=== PATIENT | female | born 1970 | race Caucasian/White ===

== ENCOUNTER 2019-01-04 01:28 | Emergency (ER) | payer SELFPAY ==
[~2019-01-04] VITALS: Ht 167.6 cm; Wt 105.0 kg
[2019-01-04] MEDS ORDERED: METOCLOPRAMIDE HCL 5 MG/ML 2 ML VIAL IVP ONE (01:45)
[2019-01-04 02:00] LABS: BASOPHILS % (AUTO) 0.7 % (0.0-2.0); EOSINOPHILS % (AUTO) 0.8 % (1.0-6.0); HEMATOCRIT 34.7 % (36-46); HEMOGLOBIN 11.5 g/dL (12.0-16.0); LYMPHOCYTES # (AUTO) 1.5 K/uL (1.0-4.8); LYMPHOCYTES % (AUTO) 17.8 % (22.0-44.0); MEAN CORPUSCULAR HEMOGLOBIN 27.1 pg (26.0-34.0); MEAN CORPUSCULAR HGB CONC 33.1 G/dL (31.0-37.0); MEAN CORPUSCULAR VOLUME 82 fL (80-100); MONOCYTES # (AUTO) 0.7 K/uL (0.1-1.0); MONOCYTES % (AUTO) 7.6 % (2.0-9.0); NEUTROPHILS # (AUTO) 6.2 K/uL (1.8-7.7); NEUTROPHILS % (AUTO) 73.1 % (40.0-70.0); PLATELET COUNT (AUTO) 274 K/uL (150-450); RED BLOOD CELL COUNT(AUTO) 4.25 MIL/uL (4.00-5.20); RED CELL DISTRIBUTION WIDTH 14.7 % (11.5-14.5)
[2019-01-04] MEDS ORDERED: SULI200T4 PO (02:08)
[2019-01-04] MEDS ORDERED: CALC25 PO (02:08)
[2019-01-04] MEDS ORDERED: KETO30I IM (02:08)
[2019-01-04] MEDS ORDERED: PARACETAMOL PO (02:08)
[2019-01-04] MEDS ORDERED: LOSA50TA64 PO (02:08)
[2019-01-04] MEDS ORDERED: AMLO-511 PO (02:08)
[2019-01-04] MEDS ORDERED: CLORTALIDONA PO (02:08)
[2019-01-04] MEDS ORDERED: VITA1TAB22 PO (02:08)
[2019-01-04 02:12] LABS: CALCIUM, TOTAL 8.9 mg/dL (8.8-10.5); CREATININE 1.03 mg/dL (0.60-1.30); POTASSIUM 3.4 mmol/L (3.5-5.1)
[2019-01-04 02:13] LABS: PROTHROMBIN TIME 10.1 SEC (9.4-11.6)
[2019-01-04 02:17] LABS: BILIRUBIN,TOTAL 0.3 mg/dL (0.1-1.0); TOTAL PROTEIN, SERUM 6.4 g/dL (6.4-8.2)
[2019-01-04 02:29] LABS: APPEARANCE,URINE CLOUDY (CLEAR); BILIRUBIN,URINE NEGATIVE (NEGATIVE); GLUCOSE, URINE (UA) NEGATIVE (NEGATIVE); KETONES,URINE TRACE mg/dL (NEGATIVE); LEUKOCYTE ESTERASE ,URINE MODERATE (NEGATIVE); NITRATE,URINE NEGATIVE (NEGATIVE); OCCULT BLOOD,URINE NEGATIVE (NEGATIVE); PH,URINE 7.5 (5.0-8.0); PROTEIN,URINE NEGATIVE (NEGATIVE)
[2019-01-04 02:39] LABS: BACTERIA,URINE Few /HPF (None Seen); RBC,URINE 0-2 /HPF (0-2); SQUAMOUS EPITHELIAL CELL,UR Many /LPF (None Seen); WBC,URINE 26-50 /HPF (0-5)
[2019-01-04 06:50] VITALS: BP 139/73
== END 2019-01-04 07:28 | disposition home or self-care (01) ==
LOC: EMS 01:30
DX: R51 Headache (principal); R07.9 Chest pain, unspecified; R11.2 Nausea with vomiting, unspecified; I10 Essential (primary) hypertension
CPT/HCPCS: 36415; 70450; 71045; 80053; 81001; 83690; 84484; 85025; 85610; 85730; 87086; 93005; 96374; 99285; J2765

== ENCOUNTER 2022-04-29 11:38 | Inpatient (IN) | payer MEDICAID ==
[~2022-04-29] VITALS: Ht 165.1 cm; Wt 108.2 kg
[~2022-04-29 11:38] MED LIST: AMLO-257 PO; CALC0.2521 PO; CLORTALIDONA PO; KETO30I IM; LOSA-382 PO; PARACETAMOL PO; SULI200T4 PO; VITA1TAB22 PO
[2022-04-29] MEDS ORDERED: ONDANSETRON HCL 4 MG/2 ML VIAL IVP ONE ×2 (12:15→15:15)
[2022-04-29] MEDS ORDERED: FentaNYL CITRATE PF 100 MCG/2 ML VIAL IVP ONE ×2 (12:15→13:30)
[2022-04-29 12:33] LABS: BASOPHILS % (AUTO) 0.3 % (0.0-2.0); EOSINOPHILS % (AUTO) 0.1 % (1.0-6.0); HEMATOCRIT 39.4 % (36-46); HEMOGLOBIN 12.8 g/dL (12.0-16.0); LYMPHOCYTES # (AUTO) 0.8 K/uL (1.0-4.8); LYMPHOCYTES % (AUTO) 4.8 % (22.0-44.0); MEAN CORPUSCULAR HEMOGLOBIN 26.6 pg (26.0-34.0); MEAN CORPUSCULAR HGB CONC 32.5 G/dL (31.0-37.0); MEAN CORPUSCULAR VOLUME 82 fL (80-100); MONOCYTES # (AUTO) 0.7 K/uL (0.1-1.0); MONOCYTES % (AUTO) 4.3 % (2.0-9.0); NEUTROPHILS # (AUTO) 14.5 K/uL (1.8-7.7); PLATELET COUNT (AUTO) 262 K/uL (150-450); RED BLOOD CELL COUNT(AUTO) 4.82 MIL/uL (4.00-5.20); RED CELL DISTRIBUTION WIDTH 15.5 % (11.5-14.5)
[2022-04-29 12:34] LABS: NEUTROPHILS % (AUTO) 90.5 % (40.0-70.0)
[2022-04-29 12:42] LABS: CALCIUM, TOTAL 8.7 mg/dL (8.8-10.5); CREATININE 1.22 mg/dL (0.60-1.30); POTASSIUM 3.9 mmol/L (3.5-5.1)
[2022-04-29 12:48] LABS: ALBUMIN 3.7 g/dL (3.4-5.0); BILIRUBIN,TOTAL 0.4 mg/dL (0.1-1.0); TOTAL PROTEIN, SERUM 7.7 g/dL (6.4-8.2)
[2022-04-29] MEDS ORDERED: SODIUM CHLORIDE 0.9% 500 ML IV ONE (13:00)
[2022-04-29] MEDS ORDERED: SODIUM CHLORIDE 0.9% 1,000 ML IV ONE ×2 (13:45→21:00)
[2022-04-29] MEDS ORDERED: KETOROLAC TROMETHAMINE 30 MG/ML VIAL IVP ONE (13:45)
[2022-04-29] MEDS ORDERED: MORPHINE SULFATE 4 MG/ML SYRINGE IVP ONE (15:15)
[2022-04-29 15:30] LABS: COVID AG,FIA SOURCE NASAL SWAB
[2022-04-29 15:51] LABS: INFLUENZA TYPE A NEGATIVE FOR TYPE A (NEGATIVE); INFLUENZA TYPE B NEGATIVE FOR TYPE B (NEGATIVE)
[2022-04-29] MEDS ORDERED: PIPERACILLIN/TAZO 3.375 GM/D5W 50 ML IV ONE (16:15)
[2022-04-29] MEDS ORDERED: ONDANSETRON HCL 4 MG/2 ML VIAL IVP PRN (16:30)
[2022-04-29] MEDS ORDERED: 0.9% SODIUM CHLORIDE 10 ML SYRINGE IVP PRN (16:30)
[2022-04-29 16:59] LABS: APPEARANCE,URINE CLEAR (CLEAR); BILIRUBIN,URINE NEGATIVE (NEGATIVE); GLUCOSE, URINE (UA) NEGATIVE (NEGATIVE); KETONES,URINE NEGATIVE (NEGATIVE); LEUKOCYTE ESTERASE ,URINE TRACE (NEGATIVE); NITRATE,URINE NEGATIVE (NEGATIVE); OCCULT BLOOD,URINE SMALL (NEGATIVE); PH,URINE 5.5 (5.0-8.0); PROTEIN,URINE NEGATIVE (NEGATIVE); UROBILINOGEN,URINE <=1.0 mg/dL (<=1.0)
[2022-04-29 17:05] LABS: BACTERIA,URINE Few /HPF (None Seen); RBC,URINE 0-2 /HPF (0-2); SQUAMOUS EPITHELIAL CELL,UR Few /LPF (None Seen); WBC,URINE 0-2 /HPF (0-5)
[2022-04-29 17:22] LABS: C.DIFF GDH ANTIGEN, Stool Negative (Negative); C.DIFF TOXINS A&B, Stool Negative (Negative)
[2022-04-29] MEDS ORDERED: MORPHINE SULFATE 2 MG/ML SYRINGE IVP PRN ×2 (17:45→23:45)
[2022-04-29 17:52] VITALS: BP 124/64
[2022-04-29 20:00] VITALS: BP 140/70
[2022-04-29] MEDS ORDERED: LOPERAMIDE HCL 2 MG CAPSULE PO PRN (20:30)
[2022-04-29] MEDS ORDERED: ZOLPIDEM TARTRATE 5 MG TABLET PO PRN (21:15)
[2022-04-29] MEDS ORDERED: MAGNESIUM HYDROXIDE SUSPENSION 30 ML UDCUP PO PRN (21:15)
[2022-04-29] MEDS ORDERED: BISACODYL 10 MG RECTAL RECTAL SUPPOSITORY PR PRN (21:15)
[2022-04-29] MEDS ORDERED: ACETAMINOPHEN 325 MG TABLET PO PRN (21:15)
[2022-04-29] MEDS: PIPERACILLIN/TAZO 3.375 GM/D5W 50 ML IV SCH (23:39)
[2022-04-30 00:43] VITALS: BP 111/56
[2022-04-30] MEDS: PIPERACILLIN/TAZO 3.375 GM/D5W 50 ML IV SCH ×4 (04:19→20:37)
[2022-04-30 04:35] VITALS: BP 126/74
[2022-04-30] MEDS: MORPHINE SULFATE 2 MG/ML SYRINGE IVP PRN ×2 (05:59→17:03)
[2022-04-30 06:05] LABS: BASOPHILS % (AUTO) 0.2 % (0.0-2.0); EOSINOPHILS % (AUTO) 0 % (1.0-6.0); HEMATOCRIT 33.7 % (36-46); HEMOGLOBIN 11.1 g/dL (12.0-16.0); LYMPHOCYTES # (AUTO) 0.5 K/uL (1.0-4.8); LYMPHOCYTES % (AUTO) 5.5 % (22.0-44.0); MEAN CORPUSCULAR HEMOGLOBIN 26.9 pg (26.0-34.0); MEAN CORPUSCULAR HGB CONC 33.1 G/dL (31.0-37.0); MEAN CORPUSCULAR VOLUME 81 fL (80-100); MONOCYTES # (AUTO) 0.3 K/uL (0.1-1.0); MONOCYTES % (AUTO) 3.1 % (2.0-9.0); NEUTROPHILS # (AUTO) 8.7 K/uL (1.8-7.7); PLATELET COUNT (AUTO) 234 K/uL (150-450); RED BLOOD CELL COUNT(AUTO) 4.14 MIL/uL (4.00-5.20); RED CELL DISTRIBUTION WIDTH 15.7 % (11.5-14.5)
[2022-04-30 06:11] LABS: NEUTROPHILS % (AUTO) 91.2 % (40.0-70.0)
[2022-04-30 06:21] LABS: BILIRUBIN,TOTAL 0.5 mg/dL (0.1-1.0); CALCIUM, TOTAL 7.4 mg/dL (8.8-10.5); CREATININE 1.24 mg/dL (0.60-1.30); POTASSIUM 3.1 mmol/L (3.5-5.1); TOTAL PROTEIN, SERUM 6.8 g/dL (6.4-8.2)
[2022-04-30] MEDS ORDERED: POTASSIUM CHLORIDE 20 MEQ ER TABLET PO ONE (06:45)
[2022-04-30] MEDS ORDERED: SODIUM CHLORIDE 0.9% 1,000 ML ONE (06:45)
[2022-04-30] MEDS ORDERED: BUPIVACAINE 0.25%/EPI 1:200,000/PF 10 ML VIAL ONE (06:45)
[2022-04-30 08:00] VITALS: BP 147/66
[2022-04-30] MEDS: HEPARIN SODIUM,PORCINE 5,000 UNITS/ML VIAL SQ SCH ×4 (08:00→23:26)
[2022-04-30] MEDS: POTASSIUM CHL 10 MEQ/WATER 50 ML IV SCH ×4 (08:07→16:36)
[2022-04-30] MEDS ORDERED: FentaNYL CITRATE PF 100 MCG/2 ML VIAL IVP PRN (08:30)
[2022-04-30] MEDS ORDERED: MEPERIDINE-PF 25 MG/ML VIAL IVP PRN (08:30)
[2022-04-30] MEDS ORDERED: HYDROmorphone 2 MG/ML VIAL IVP PRN (08:30)
[2022-04-30] MEDS ORDERED: RINGERS SOLUTION,LACTATED 1,000 ML IV ONE (08:40)
[2022-04-30] MEDS: DOCUSATE SODIUM 100 MG CAPSULE PO SCH ×3 (09:00→20:27)
[2022-04-30] MEDS ORDERED: SUGAMMADEX SODIUM 200 MG/2 ML VIAL IVP ONE (10:14)
[2022-04-30] MEDS: MetroNIDAZOLE 500 MG TABLET PO SCH ×3 (11:40→20:36)
[2022-04-30] MEDS: PANTOPRAZOLE SODIUM 40 MG DR TABLET PO SCH (11:40)
[2022-04-30 12:15] VITALS: BP 133/76
[2022-04-30] MEDS: HYDROCODONE/ACETAMINOPHEN 5-325 MG TABLET PO PRN ×2 (12:33→16:36)
[2022-04-30 16:00] VITALS: BP 127/54
[2022-04-30 19:54] VITALS: BP 127/63
[2022-04-30] MEDS: OXYGEN THERAPY IH SCH (20:00)
[2022-04-30] MEDS: ONDANSETRON HCL 4 MG/2 ML VIAL IVP PRN (20:36)
[2022-05-01] MEDS ORDERED: SODIUM CHLORIDE 0.9% 1,000 ML ONE (02:39)
[2022-05-01] MEDS: PIPERACILLIN/TAZO 3.375 GM/D5W 50 ML IV SCH ×4 (03:50→20:17)
[2022-05-01 04:31] VITALS: BP 147/77
[2022-05-01] MEDS ORDERED: KETOROLAC TROMETHAMINE 60 MG/2 ML VIAL IM ONE (06:29)
[2022-05-01] MEDS ORDERED: ROCURONIUM BROMIDE 10 MG/ML 5 ML VIAL IVP ONE (06:29)
[2022-05-01] MEDS ORDERED: PROPOFOL 1% 20 ML VIAL IVP ONE (06:29)
[2022-05-01] MEDS ORDERED: MIDAZOLAM HCL 2 MG/2 ML VIAL IVP ONE (06:29)
[2022-05-01] MEDS ORDERED: ONDANSETRON HCL 4 MG/2 ML VIAL IVP ONE (06:29)
[2022-05-01] MEDS ORDERED: FentaNYL CITRATE PF 100 MCG/2 ML VIAL IVP ONE (06:29)
[2022-05-01] MEDS ORDERED: PHENYLEPHRINE HCL 10 MG/ML VIAL IVP ONE (06:29)
[2022-05-01] MEDS ORDERED: LIDOCAINE/PF 2% 5 ML SYRINGE IVP ONE (06:29)
[2022-05-01 06:55] LABS: BASOPHILS % (AUTO) 0.3 % (0.0-2.0); CALCIUM, TOTAL 7.8 mg/dL (8.8-10.5); CREATININE 1.03 mg/dL (0.60-1.30); EOSINOPHILS % (AUTO) 0 % (1.0-6.0); HEMATOCRIT 30.2 % (36-46); HEMOGLOBIN 9.9 g/dL (12.0-16.0); LYMPHOCYTES # (AUTO) 1.5 K/uL (1.0-4.8); LYMPHOCYTES % (AUTO) 17.8 % (22.0-44.0); MEAN CORPUSCULAR HEMOGLOBIN 26.9 pg (26.0-34.0); MEAN CORPUSCULAR HGB CONC 32.8 G/dL (31.0-37.0); MEAN CORPUSCULAR VOLUME 82 fL (80-100); MONOCYTES # (AUTO) 0.5 K/uL (0.1-1.0); MONOCYTES % (AUTO) 6.5 % (2.0-9.0); NEUTROPHILS # (AUTO) 6.4 K/uL (1.8-7.7); NEUTROPHILS % (AUTO) 75.4 % (40.0-70.0); POTASSIUM 3.7 mmol/L (3.5-5.1); RED BLOOD CELL COUNT(AUTO) 3.68 MIL/uL (4.00-5.20); RED CELL DISTRIBUTION WIDTH 15.8 % (11.5-14.5)
[2022-05-01] MEDS: OXYGEN THERAPY IH SCH ×2 (08:00→20:00)
[2022-05-01 08:03] VITALS: BP 134/71
[2022-05-01] MEDS: MetroNIDAZOLE 500 MG TABLET PO SCH ×3 (08:40→20:17)
[2022-05-01] MEDS: HEPARIN SODIUM,PORCINE 5,000 UNITS/ML VIAL SQ SCH ×2 (08:40→16:19)
[2022-05-01] MEDS: PANTOPRAZOLE SODIUM 40 MG DR TABLET PO SCH (08:40)
[2022-05-01] MEDS: DOCUSATE SODIUM 100 MG CAPSULE PO SCH ×2 (08:41→20:28)
[2022-05-01] MEDS: HYDROCODONE/ACETAMINOPHEN 5-325 MG TABLET PO PRN ×2 (08:44→16:19)
[2022-05-01 09:55] LABS: PLATELET COUNT (AUTO) 199 K/uL (150-450)
[2022-05-01] MEDS ORDERED: ACET325T51 PO (10:22)
[2022-05-01] MEDS ORDERED: METR500 PO (10:22)
[2022-05-01 15:40] VITALS: BP 124/70
[2022-05-01] MEDS ORDERED: MORPHINE SULFATE 2 MG/ML SYRINGE IM PRN (19:00)
[2022-05-01] MEDS ORDERED: MORPHINE SULFATE 2 MG/ML SYRINGE IVP PRN (19:00)
[2022-05-01] MEDS: ONDANSETRON HCL 4 MG/2 ML VIAL IVP PRN (20:17)
[2022-05-01 20:47] VITALS: BP 148/77
[2022-05-02] MEDS: HEPARIN SODIUM,PORCINE 5,000 UNITS/ML VIAL SQ SCH ×2 (00:06→08:26)
[2022-05-02] MEDS: PIPERACILLIN/TAZO 3.375 GM/D5W 50 ML IV SCH ×2 (04:23→10:03)
[2022-05-02] MEDS: HYDROCODONE/ACETAMINOPHEN 5-325 MG TABLET PO PRN ×2 (04:23→08:25)
[2022-05-02 04:35] VITALS: BP 155/90
[2022-05-02 07:13] LABS: BASOPHILS % (AUTO) 0.3 % (0.0-2.0); EOSINOPHILS % (AUTO) 0.1 % (1.0-6.0); HEMATOCRIT 30.8 % (36-46); HEMOGLOBIN 10.2 g/dL (12.0-16.0); LYMPHOCYTES # (AUTO) 1.4 K/uL (1.0-4.8); LYMPHOCYTES % (AUTO) 16.2 % (22.0-44.0); MEAN CORPUSCULAR HEMOGLOBIN 26.9 pg (26.0-34.0); MEAN CORPUSCULAR HGB CONC 33.1 G/dL (31.0-37.0); MEAN CORPUSCULAR VOLUME 81 fL (80-100); MONOCYTES # (AUTO) 0.6 K/uL (0.1-1.0); MONOCYTES % (AUTO) 7.1 % (2.0-9.0); NEUTROPHILS # (AUTO) 6.6 K/uL (1.8-7.7); NEUTROPHILS % (AUTO) 76.3 % (40.0-70.0); PLATELET COUNT (AUTO) 218 K/uL (150-450); RED CELL DISTRIBUTION WIDTH 15.7 % (11.5-14.5)
[2022-05-02 08:00] VITALS: BP 147/88
[2022-05-02] MEDS: OXYGEN THERAPY IH SCH (08:00)
[2022-05-02] MEDS: MetroNIDAZOLE 500 MG TABLET PO SCH (08:25)
[2022-05-02] MEDS: PANTOPRAZOLE SODIUM 40 MG DR TABLET PO SCH (08:25)
[2022-05-02] MEDS: DOCUSATE SODIUM 100 MG CAPSULE PO SCH (08:26)
== END 2022-05-02 15:10 | disposition home or self-care (01) | DRG 263 ==
LOC: EMS 11:38 → 6S 17:09
PROVIDERS: ADMIT Internal Medicine; ATTEND Internal Medicine
PROC: 0FT44ZZ Resection of Gallbladder, Percutaneous Endoscopic Approach (ICD-10-PCS; principal; 2022-04-30 09:30)
DX: K80.00 Calculus of gallbladder with acute cholecystitis without obstruction (principal); F41.9 Anxiety disorder, unspecified; Z20.822 Contact with and (suspected) exposure to COVID-19; I10 Essential (primary) hypertension; Z79.899 Other long term (current) drug therapy
CPT/HCPCS: 74176; 76700; 80048; 80053; 81001; 83690; 84484; 85025; 87081; 87324; 87449; 87804; 88304; 93005; 93306; 99285; J1644; J1885; J2250; J2270; J2370; J2405; J2543; J2704; J3010; J3480; J3490; J7030; J7040; J7120; Q9967

== ENCOUNTER 2024-11-16 13:16 | Emergency (ER) | payer MEDICAID, OTHER ==
[~2024-11-16] VITALS: Ht 165.1 cm; Wt 100.0 kg
[~2024-11-16 13:16] MED LIST changes: +ACET-3862 PO; -AMLO-257 PO; -CALC0.2521 PO; -CLORTALIDONA PO; -KETO30I IM; +METR500 PO; -PARACETAMOL PO; -SULI200T4 PO; -VITA1TAB22 PO
[2024-11-16] MEDS ORDERED: AMOXICILLIN PO (13:36)
[2024-11-16] MEDS ORDERED: [UNRECOGNIZED DRUG - CODE] PO (13:36)
[2024-11-16] MEDS ORDERED: OMEP20 PO (13:36)
[2024-11-16] MEDS ORDERED: LISI2.5T91 PO (13:36)
[2024-11-16 13:38] VITALS: BP 134/64; PULSE 82; RESP 18; TEMP 98.2; O2SAT 98
[2024-11-16] MEDS ORDERED: IBUP-1492 PO (16:54)
[2024-11-16] MEDS ORDERED: ACET-3385 PO (16:54)
[2024-11-16] MEDS: ACETAMINOPHEN 500 MG TABLET PO ONE (17:01)
[2024-11-16] MEDS: IBUPROFEN 600 MG TABLET PO ONE (17:01)
== END 2024-11-16 17:10 | disposition home or self-care (01) ==
LOC: EMS 13:28
DX: S46.211A Strain of muscle, fascia and tendon of other parts of biceps, right arm, initial encounter (principal); M79.601 Pain in right arm; M25.521 Pain in right elbow; I10 Essential (primary) hypertension; Z90.49 Acquired absence of other specified parts of digestive tract; Z79.899 Other long term (current) drug therapy; X50.0XXA Overexertion from strenuous movement or load, initial encounter; Y93.89 Activity, other specified; Y92.89 Other specified places as the place of occurrence of the external cause; Y99.8 Other external cause status
CPT/HCPCS: 99283

== ENCOUNTER 2025-07-18 16:54 | Inpatient (IN) | payer OTHER ==
[~2025-07-18] VITALS: Ht 157.5 cm; Wt 117.5 kg
[~2025-07-18 16:54] MED LIST changes: +ACET-3385 PO; -ACET-3862 PO; +AMOXICILLIN PO; +IBUP-1492 PO; +LISI2.5T91 PO; -LOSA-382 PO; -METR500 PO; +OMEP-148 PO; +[UNRECOGNIZED DRUG - CODE] PO
[2025-07-18 17:40] LABS: PLATELET COUNT (AUTO) 264 K/uL (150-450); RED BLOOD CELL COUNT(AUTO) 4.92 MIL/uL (4.00-5.20); RED CELL DISTRIBUTION WIDTH 15.5 % (11.5-14.5); WHITE BLOOD COUNT (AUTO) 7.6 K/uL (4.5-11.0)
[2025-07-18] MEDS: SODIUM CHLORIDE 0.9% 1,000 ML IV ONE (17:42)
[2025-07-18] MEDS: IOHEXOL 9 MG/ML 500 ML BOTTLE PO ONE (17:43)
[2025-07-18] MEDS: ONDANSETRON HCL 4 MG/2 ML VIAL IVP ONE ×3 (17:43→21:36)
[2025-07-18 17:47] LABS: CALCIUM, TOTAL 9.0 mg/dL (8.8-10.5); CREATININE 1.10 mg/dL (0.60-1.30); GLOMERULAR FILTR. RATE CALC 51 mL/min (>60); GLUCOSE,RANDOM 91 mg/dL (70-110); SODIUM SERUM 138 mmol/L (136-145); UREA NITROGEN, BLOOD 20 mg/dL (7-18)
[2025-07-18] MEDS ORDERED: DICL100G60 TP (17:51)
[2025-07-18] MEDS ORDERED: FAMO20 PO (17:51)
[2025-07-18] MEDS ORDERED: LISI-893 PO (17:51)
[2025-07-18] MEDS ORDERED: METF750T57 PO (17:51)
[2025-07-18] MEDS ORDERED: FLUT10.67 IH (17:51)
[2025-07-18] MEDS ORDERED: LIDO1ADH72 TD (17:51)
[2025-07-18] MEDS ORDERED: TRIA-97 PO (17:51)
[2025-07-18] MEDS ORDERED: MONT-35 PO (17:51)
[2025-07-18] MEDS ORDERED: ALBU18HF12 IH (17:51)
[2025-07-18] MEDS ORDERED: AMLO-257 PO (17:51)
[2025-07-18] MEDS ORDERED: FLUT12AE3 IH (17:51)
[2025-07-18] MEDS ORDERED: ESCI-8 PO (17:51)
[2025-07-18] MEDS ORDERED: CHOL200059 PO (17:51)
[2025-07-18 17:56] LABS: APPEARANCE,URINE CLEAR (CLEAR); GLUCOSE, URINE (UA) NEGATIVE (NEGATIVE); LEUKOCYTE ESTERASE ,URINE NEGATIVE (NEGATIVE); NITRATE,URINE NEGATIVE (NEGATIVE); OCCULT BLOOD,URINE NEGATIVE (NEGATIVE); SPECIFIC GRAVITIY, URINE 1.017 (1.003-1.030)
[2025-07-18 17:57] LABS: TROPONIN I-HIGH SENSITIVITY 5 ng/L (<51)
[2025-07-18] MEDS ORDERED: BISACODYL 10 MG RECTAL RECTAL SUPPOSITORY PR PRN (21:30)
[2025-07-18] MEDS ORDERED: ZOLPIDEM TARTRATE 5 MG TABLET PO PRN (21:30)
[2025-07-18] MEDS ORDERED: MAGNESIUM HYDROXIDE SUSPENSION 30 ML UDCUP PO PRN (21:30)
[2025-07-18] MEDS ORDERED: ONDANSETRON HCL 4 MG/2 ML VIAL IVP PRN (21:30)
[2025-07-18 23:26] VITALS: BP 128/79; PULSE 68; RESP 18; TEMP 97.5; O2SAT 98
[2025-07-18] MEDS: MORPHINE SULFATE 2 MG/ML SYRINGE IVP PRN (23:42)
[2025-07-18] MEDS: HEPARIN SODIUM,PORCINE 5,000 UNITS/ML VIAL SQ SCH (23:45)
[2025-07-19] MEDS: SODIUM CHLORIDE 0.9% 1,000 ML IV ONE (00:33)
[2025-07-19] MEDS: METOCLOPRAMIDE HCL 5 MG/ML 2 ML VIAL IVP PRN (00:33)
[2025-07-19 05:29] VITALS: BP 137/80; PULSE 85; RESP 20; TEMP 97.3; O2SAT 96
[2025-07-19 07:07] LABS: PLATELET COUNT (AUTO) 266 K/uL (150-450); RED BLOOD CELL COUNT(AUTO) 4.91 MIL/uL (4.00-5.20); RED CELL DISTRIBUTION WIDTH 15.2 % (11.5-14.5); WHITE BLOOD COUNT (AUTO) 8.4 K/uL (4.5-11.0)
[2025-07-19 07:47] VITALS: BP 142/86; PULSE 81; RESP 20; TEMP 97.7; O2SAT 97
[2025-07-19 07:51] LABS: CALCIUM, TOTAL 8.3 mg/dL (8.8-10.5); CREATININE 0.95 mg/dL (0.60-1.30); GLOMERULAR FILTR. RATE CALC > 60 mL/min (>60); GLUCOSE,RANDOM 118 mg/dL (70-110); UREA NITROGEN, BLOOD 14 mg/dL (7-18)
[2025-07-19] MEDS: MetFORMIN HCL 750 MG ER TABLET PO SCH (08:00)
[2025-07-19 08:06] LABS: SODIUM SERUM 136 mmol/L (136-145)
[2025-07-19] MEDS: ESCITALOPRAM OXALATE 10 MG TABLET PO SCH (09:00)
[2025-07-19] MEDS: CHOLECALCIFEROL (VIT D3) 2,000 UNITS [50 MCG] TABLET PO SCH (09:00)
[2025-07-19] MEDS: PANTOPRAZOLE SODIUM 40 MG DR TABLET PO SCH (09:00)
[2025-07-19] MEDS: DOCUSATE SODIUM 100 MG CAPSULE PO SCH (09:00)
[2025-07-19 12:00] VITALS: BP 137/77; PULSE 71; RESP 18; O2SAT 97
[2025-07-19 16:30] VITALS: BP 125/72; PULSE 70; RESP 18; O2SAT 96
[2025-07-19] MEDS: HYDROCODONE/ACETAMINOPHEN 5-325 MG TABLET PO PRN (16:30)
[2025-07-19 16:50] LABS: PH,URINE DRUG SCREEN 6.0 (5.0-8.0)
[2025-07-19 16:56] LABS: ALCOHOL, URINE DRUG SCREEN NEGATIVE (NEGATIVE); AMPHET/METH SCREEN,URINE NEGATIVE (NEGATIVE); BARBITURATE SCREEN, URINE NEGATIVE (NEGATIVE); CANNABINOID SCREEN,URINE NEGATIVE (NEGATIVE); COCAINE SCREEN,URINE NEGATIVE (NEGATIVE); METHADONE SCREEN, URINE NEGATIVE (NEGATIVE)
[2025-07-19 17:00] VITALS: BP 119/74; PULSE 71; RESP 20; TEMP 98.1; O2SAT 97
[2025-07-19 20:10] VITALS: BP 133/83; PULSE 69; RESP 18; TEMP 98.1; O2SAT 96
[2025-07-19] MEDS: MONTELUKAST SODIUM 10 MG TABLET PO SCH (21:24)
[2025-07-20 04:30] VITALS: BP 127/80; PULSE 77; RESP 18; TEMP 98.4; O2SAT 98
[2025-07-20 07:06] LABS: CALCIUM, TOTAL 8.2 mg/dL (8.8-10.5); CREATININE 0.98 mg/dL (0.60-1.30); GLOMERULAR FILTR. RATE CALC 58.0 mL/min (>60); GLUCOSE,RANDOM 96.0 mg/dL (70-110); SODIUM SERUM 137.0 mmol/L (136-145); UREA NITROGEN, BLOOD 13.0 mg/dL (7-18)
[2025-07-20 08:00] VITALS: BP 119/72; PULSE 62; RESP 20; TEMP 97.9; O2SAT 96
[2025-07-20] MEDS: ACETAMINOPHEN 325 MG TABLET PO PRN (12:29)
[2025-07-20 16:00] VITALS: BP 113/70; PULSE 78; RESP 20; TEMP 97.7; O2SAT 98
[2025-07-20 17:53] LABS: PLATELET COUNT (AUTO) 240 K/uL (150-450); RED BLOOD CELL COUNT(AUTO) 4.79 MIL/uL (4.00-5.20); RED CELL DISTRIBUTION WIDTH 15.3 % (11.5-14.5); WHITE BLOOD COUNT (AUTO) 4.3 K/uL (4.5-11.0)
[2025-07-20 18:02] LABS: CALCIUM, TOTAL 8.4 mg/dL (8.8-10.5); CREATININE 0.92 mg/dL (0.60-1.30); GLOMERULAR FILTR. RATE CALC > 60 mL/min (>60); GLUCOSE,RANDOM 91 mg/dL (70-110); SODIUM SERUM 137 mmol/L (136-145); UREA NITROGEN, BLOOD 12 mg/dL (7-18)
[2025-07-20 18:06] LABS: ASPARTATE AMINOTRANSFERASE 29 U/L (15-37); TOTAL PROTEIN, SERUM 7.0 g/dL (6.4-8.2)
[2025-07-20 18:11] LABS: LACTIC ACID 0.5 mmol/L (0.4-2.0); TROPONIN I-HIGH SENSITIVITY 6 ng/L (<51)
[2025-07-20] MEDS: PIPERACILLIN/TAZO 3.375 GM/D5W 50 ML IV SCH (18:46)
[2025-07-20] MEDS ORDERED: SODIUM CHLORIDE 0.9% 500 ML IV ONE (18:48)
[2025-07-20 20:00] VITALS: TEMP 98.2
[2025-07-21 03:58] VITALS: BP 131/79; PULSE 73; RESP 18; TEMP 97.9; O2SAT 99
[2025-07-21 06:24] LABS: CALCIUM, TOTAL 8.1 mg/dL (8.8-10.5); CREATININE 1.07 mg/dL (0.60-1.30); GLOMERULAR FILTR. RATE CALC 53.0 mL/min (>60); GLUCOSE,RANDOM 92.0 mg/dL (70-110); SODIUM SERUM 138.0 mmol/L (136-145); UREA NITROGEN, BLOOD 14.0 mg/dL (7-18)
[2025-07-21 08:32] VITALS: BP 133/82; PULSE 68; RESP 18; TEMP 97.9; O2SAT 98
[2025-07-21] MEDS: DEXTROSE 5%-LACTATED RINGERS 1,000 ML IV SCH (14:33)
[2025-07-21 15:45] VITALS: BP 136/78; PULSE 68; RESP 18; TEMP 98.2; O2SAT 99
[2025-07-21 17:18] LABS: C.DIFF GDH ANTIGEN, Stool Negative (Negative); C.DIFF TOXINS A&B, Stool Negative (Negative)
[2025-07-21 20:00] VITALS: BP 130/72; PULSE 66; RESP 18; TEMP 98.4; O2SAT 98
[2025-07-21] MEDS: PB/HYOSCY/ATR/SCOP/LIDO/MAALOX 55 ML BOTTLE PO ONE (20:30)
[2025-07-22 04:44] VITALS: BP 137/82; PULSE 79; RESP 18; TEMP 97.7; O2SAT 98
[2025-07-22 07:18] VITALS: BP 148/83; PULSE 69; RESP 20; TEMP 97.7; O2SAT 97
[2025-07-22] MEDS: PANTOPRAZOLE SODIUM 40 MG DR TABLET PO SCH (12:16)
[2025-07-22] MEDS: PB/HYOSCY/ATR/SCOP/LIDO/MAALOX 55 ML BOTTLE PO ONE (12:22)
== END 2025-07-22 14:10 | disposition home or self-care (01) | DRG 251 ==
LOC: EMS 16:59 → EDH 21:21 → 4E 23:13
PROVIDERS: ADMIT Internal Medicine; ATTEND Internal Medicine
DX: R10.12 Left upper quadrant pain (principal); E11.9 Type 2 diabetes mellitus without complications; E66.01 Morbid (severe) obesity due to excess calories; J44.9 Chronic obstructive pulmonary disease, unspecified; I10 Essential (primary) hypertension; M54.6 Pain in thoracic spine; D49.512 Neoplasm of unspecified behavior of left kidney; E78.5 Hyperlipidemia, unspecified; Z68.42 Body mass index [BMI] 45.0-49.9, adult; K21.9 Gastro-esophageal reflux disease without esophagitis; F32.A Depression, unspecified; G89.29 Other chronic pain; Z90.49 Acquired absence of other specified parts of digestive tract; Z90.710 Acquired absence of both cervix and uterus
CPT/HCPCS: 71045; 71250; 72192; 74150; 74176; 80048; 80076; 80307; 81003; 83605; 83690; 84484; 85025; 85379; 87045; 87324; 87449; 93005; 96374; 96375; 96376; 99285; G0378; J1171; J1644; J2270; J2405; J2543; J2765; J7030; J7040; 36415-L1; 36415-TC